=== PATIENT | female | born 1960 | race Caucasian/White ===

== ENCOUNTER 2021-07-31 23:23 | Emergency (ER) | payer BC ==
[~2021-07-31] VITALS: Ht 160 cm; Wt 54.4 kg
[2021-07-31 23:42] VITALS: BP_SYST 190
[2021-08-01] MEDS ORDERED: LIDOCAINE PATCH 5% 1 EA TP ONE ×2 (02:00→02:15)
[2021-08-01] MEDS ORDERED: DIPHENHYDRAMINE INJ 50 MG/ML VIAL IM ONE (04:30)
[2021-08-01] MEDS ORDERED: MORPHINE SULFATE 10 MG/ML VIAL IM ONE (04:30)
[2021-08-01 05:09] VITALS: BP_SYST 188
== END 2021-08-01 05:10 | disposition home or self-care (01) ==
LOC: SED 23:23
DX: S22.42XA Multiple fractures of ribs, left side, initial encounter for closed fracture (principal); Z79.899 Other long term (current) drug therapy; W06.XXXA Fall from bed, initial encounter; Y93.89 Activity, other specified; Y92.89 Other specified places as the place of occurrence of the external cause; Y99.8 Other external cause status
CPT/HCPCS: 71100; 96372; 99284; J1200; J2270

== ENCOUNTER → 2022-06-02 | Emergency (ER) | payer BC ==
[~2022-06-02] VITALS: Ht 160 cm; Wt 52.2 kg
[~2022-06-02] MED LIST: BACITRACIN 1 GM OINT TP ONE; DIPH-TET-PERTUS Vaccine 0.5 ML VIAL (ADACEL) I.M. ONE; HYDR-3921 PO; IBUP-1969 PO; MORPHINE 4 MG INJ. 4 MG/ML VIAL IM ONE
[2022-06-02 18:02] VITALS: BP_SYST 158
[2022-06-02 22:32] VITALS: BP_SYST 158
== END | disposition home or self-care (01) ==
LOC: SED 17:38
DX: S42.292A Other displaced fracture of upper end of left humerus, initial encounter for closed fracture (principal); S09.90XA Unspecified injury of head, initial encounter; S01.01XA Laceration without foreign body of scalp, initial encounter; W18.39XA Other fall on same level, initial encounter; Y93.89 Activity, other specified; Y92.89 Other specified places as the place of occurrence of the external cause; Y99.8 Other external cause status
CPT/HCPCS: 99284; 70450; 73030; 73502; 76376; 90715; 90471; 12002; 96372; J2270

== ENCOUNTER 2024-05-12 11:38 | Emergency (ER) | payer BC ==
[~2024-05-12] VITALS: Ht 160 cm; Wt 56.7 kg
[~2024-05-12 11:38] MED LIST changes: -BACITRACIN 1 GM OINT TP ONE; -DIPH-TET-PERTUS Vaccine 0.5 ML VIAL (ADACEL) I.M. ONE; -MORPHINE 4 MG INJ. 4 MG/ML VIAL IM ONE
[2024-05-12 11:44] VITALS: BP_SYST 156; PULSE 86; RESP 18; TEMP 98.3; O2SAT 98
[2024-05-12 12:46] LABS: PROTHROMBIN TIME 9.9 SECS (9.5-12.5)
[2024-05-12 12:52] LABS: EOSINOPHILS # (AUTO) 0.1 K/uL (0.0-0.4)
[2024-05-12 12:56] LABS: ALBUMIN 4.2 g/dL (3.4-4.8); BASOPHILS % (AUTO) 0.2 % (0.0-2.0); BILIRUBIN,DIRECT 0.1 mg/dL (0.0-0.3); CALCIUM 9.1 mg/dL (8.4-11.0); CREATININE 0.66 mg/dL (0.55-1.30); EOSINOPHILS % (AUTO) 0.5 % (0.0-4.0); HEMATOCRIT 38.1 % (36-48); HEMOGLOBIN 13.1 g/dL (12.0-16.0); LYMPHOCYTES % (AUTO) 17.6 % (20.5-51.5); MEAN CORPUSCULAR HEMOGLOBIN 33 pg (27-31); MEAN CORPUSCULAR HGB CONC 34 % (32-36); MEAN CORPUSCULAR VOLUME 95 fL (79.0-98.0); MONOCYTES # (AUTO) 0.6 K/uL (0.0-1.0); MONOCYTES % (AUTO) 5.3 % (1.7-9.3); NEUTROPHILS # (AUTO) 8.7 K/uL (1.8-7.7); NEUTROPHILS % (AUTO) 76.4 % (40.0-70.0); PLATELET COUNT (AUTO) 243 K/uL (130-430); POTASSIUM 4.5 mmol/L (3.5-5.1); RED CELL DISTRIBUTION WIDTH 12.9 % (9.0-15.0); TOTAL BILIRUBIN 0.2 mg/dL (0.0-1.0); WHITE BLOOD COUNT (AUTO) 11.4 K/uL (4.8-10.8)
[2024-05-12 13:09] LABS: BILIRUBIN,URINE NEGATIVE (NEGATIVE); CLARITY/URINE CLEAR (CLEAR); COLOR,URINE YELLOW (YELLOW); GLUCOSE,URINE NEGATIVE (NEGATIVE); KETONES,URINE NEGATIVE (NEGATIVE); LEUKOCYTE ESTERASE ,URINE TRACE (NEGATIVE); NITRITE, URINE NEGATIVE (NEGATIVE); PH,URINE 5.5 (5.0-8.0); PROTEIN URINE TRACE (NEGATIVE); UROBILINOGEN,URINE 0.2 (0.2-1.0)
[2024-05-12 13:26] LABS: BLOOD, URINE TRACE (NEGATIVE)
[2024-05-12 13:28] LABS: BACTERIA,URINE RARE /HPF (None Seen)
[2024-05-12 13:29] LABS: HYALINE CASTS, URINE 0-1 /LPF (None Seen)
[2024-05-12 15:57] VITALS: BP_SYST 192; PULSE 81; RESP 20; TEMP 98.3; O2SAT 99
== END 2024-05-12 15:56 | disposition home or self-care (01) ==
LOC: SED 11:38
DX: N93.9 Abnormal uterine and vaginal bleeding, unspecified (principal); R93.89 Abnormal findings on diagnostic imaging of other specified body structures; Z79.899 Other long term (current) drug therapy
CPT/HCPCS: 36415; 76857; 80048; 80076; 81000; 81001; 81015; 84702; 85025; 85610; 85730; 99284

== ENCOUNTER 2024-05-31 10:04 | Day surgery (SDC) | payer BC ==
[2024-05-29 10:22] LABS: BASOPHILS # (AUTO) 0.1 K/uL (0.0-0.2); BASOPHILS % (AUTO) 0.6 % (0.0-2.0); EOSINOPHILS # (AUTO) 0.1 K/uL (0.0-0.4); EOSINOPHILS % (AUTO) 1.3 % (0.0-4.0); HEMATOCRIT 39.4 % (36-48); HEMOGLOBIN 13.5 g/dL (12.0-16.0); LYMPHOCYTES # (AUTO) 1.7 K/uL (1.0-5.5); LYMPHOCYTES % (AUTO) 18.1 % (20.5-51.5); MEAN CORPUSCULAR HEMOGLOBIN 33 pg (27-31); MEAN CORPUSCULAR HGB CONC 34 % (32-36); MEAN CORPUSCULAR VOLUME 97 fL (79.0-98.0); MONOCYTES # (AUTO) 0.6 K/uL (0.0-1.0); MONOCYTES % (AUTO) 6.1 % (1.7-9.3); NEUTROPHILS % (AUTO) 73.9 % (40.0-70.0); PLATELET COUNT (AUTO) 253 K/uL (130-430); RED BLOOD CELL COUNT(AUTO) 4.08 MIL/uL (4.2-6.2); RED CELL DISTRIBUTION WIDTH 13.2 % (9.0-15.0); WHITE BLOOD COUNT (AUTO) 9.4 K/uL (4.8-10.8)
[2024-05-29 10:42] LABS: BILIRUBIN,URINE NEGATIVE (NEGATIVE); BLOOD, URINE 1+ (NEGATIVE); CLARITY/URINE CLEAR (CLEAR); COLOR,URINE YELLOW (YELLOW); GLUCOSE,URINE NEGATIVE (NEGATIVE); KETONES,URINE TRACE (NEGATIVE); LEUKOCYTE ESTERASE ,URINE TRACE (NEGATIVE); NITRITE, URINE NEGATIVE (NEGATIVE); PH,URINE 7.5 (5.0-8.0); PROTEIN URINE 1+ (NEGATIVE); UROBILINOGEN,URINE 0.2 (0.2-1.0)
[2024-05-29 10:43] LABS: BACTERIA,URINE RARE /HPF (None Seen); HYALINE CASTS, URINE 0-1 /LPF (None Seen)
[~2024-05-31] VITALS: Ht 160 cm; Wt 49.0 kg
[~2024-05-31 10:04] MED LIST changes: +CEFAZOLIN SOD 2 GM in D5W 50 ML IV ONE
[2024-05-31 11:35] VITALS: O2SAT 98
[2024-05-31] MEDS ORDERED: fentaNYL CITRATE/PF 100 MCG/2 ML AMP ONE (12:58)
[2024-05-31] MEDS ORDERED: MIDAZOLAM HCL 2 MG/2 ML VIAL (VERSED) ONE (12:58)
[2024-05-31] MEDS ORDERED: ACETAMINOPHEN I.V. 1000 MG 100 ML IV ONE (12:59)
[2024-05-31] MEDS ORDERED: ONDANSETRON HCL 4 MG/2 ML VIAL ONE (13:00)
[2024-05-31] MEDS ORDERED: LR 1,000 ML IV ONE (13:15)
[2024-05-31] MEDS ORDERED: fentaNYL CITRATE/PF 100 MCG/2 ML AMP IVP PRN ×2 (13:15)
[2024-05-31] MEDS ORDERED: ONDANSETRON HCL 4 MG/2 ML VIAL IVP PRN ×2 (13:15→19:00)
[2024-05-31] MEDS ORDERED: HYDROmorphone 1 MG/ML INJ. CARTRIDGE ONE (14:37)
[2024-05-31] MEDS: HYDROmorphone 1 MG/ML INJ. CARTRIDGE IVP PRN (14:45)
[2024-05-31 17:03] VITALS: BP_SYST 149; PULSE 62; RESP 16
[2024-05-31] MEDS ORDERED: HYDROcodone/ACETAMIN 5-325 MG TAB (NORCO/ VICODIN) PO PRN (19:00)
[2024-05-31] MEDS ORDERED: OXYCODONE/ACETAMINOPHEN 5-325 TABLET PO PRN ×2 (19:00)
== END 2024-05-31 15:58 | disposition home or self-care (01) ==
LOC: SDS 10:04 → SMU 10:05 → SDS 15:58
PROVIDERS: ATTEND Specialist
DX: N95.0 Postmenopausal bleeding (principal); C54.1 Malignant neoplasm of endometrium; I10 Essential (primary) hypertension; F41.9 Anxiety disorder, unspecified; F32.A Depression, unspecified; F17.210 Nicotine dependence, cigarettes, uncomplicated; G43.909 Migraine, unspecified, not intractable, without status migrainosus; J44.9 Chronic obstructive pulmonary disease, unspecified; R93.89 Abnormal findings on diagnostic imaging of other specified body structures; Z98.891 History of uterine scar from previous surgery; Z98.890 Other specified postprocedural states; Z79.899 Other long term (current) drug therapy
CPT/HCPCS: 81000; 81001; 84702; 85025; 87081; 36415; 93005; 58561; 88305; J0690; J3465; J2405; J2704; J3010; J1170; J7060; J7120; C1819; J0131; 81015